=== PATIENT | female | born 1940 | race Caucasian/White ===

== ENCOUNTER 2020-11-30 15:32 | Outpatient (CLI) | payer MEDICARE | END 2020-11-30 15:33 | disposition home or self-care (01) | LOC: CSHULT 15:32 | PROVIDERS: ATTEND Otolaryngology Plastic Surgery within the Head & Neck | DX: R09.89 Other specified symptoms and signs involving the circulatory and respiratory systems (principal) | CPT/HCPCS: 93880 ==